=== PATIENT | male | born 1960 | race African-American/Black ===

== ENCOUNTER 2017-08-15 19:46 | Emergency (ER) | payer MEDICARE, OTHER ==
[~2017-08-15] VITALS: Ht 172.7 cm; Wt 79.4 kg
[2017-08-15 19:50] VITALS: BP 118/59
[2017-08-15 21:30] LABS: Albumin 2.9 g/dL (3.4-5.0); Magnesium 2.2 mg/dL (1.6-2.6)
[2017-08-15 21:32] LABS: BUN/Creatinine Ratio 21.9
[2017-08-15 21:34] LABS: Basophils # (auto) 0.1 uL; Basophils % (auto) 0.6 % (0.0-2.0); Eosinophils # (auto) 0.1 uL; Eosinophils % (auto) 0.4 % (0.0-7.0); Hematocrit 41.1 % (41.0-53.0); Hemoglobin 13.6 g/dL (13.5-17.5); Lymphocytes # (auto) 1.3 uL; Lymphocytes % (auto) 9.5 % (10.0-50.0); Mean Corpuscular Hgb Conc. 33.2 g/dL (32.0-36.0); Mean Corpuscular Volume 87.5 fL (80.0-100.0); Monocytes # (auto) 1.3 uL; Monocytes % (auto) 9.7 % (0.0-12.0); Neutrophils # (auto) 10.7 uL; Neutrophils % (auto) 79.8 % (37.0-80.0); Nucleated Red Blood Cells % 0.1 %; Platelet Count (auto) 165 10^3/uL (140-450); Red Cell Distribution Width 14.5 % (11.8-14.3); White Blood Cell 13.4 10^3/uL (4.4-10.8)
[2017-08-15 21:35] LABS: Bilirubin, Total 0.6 mg/dL (0.2-1.0); Total Protein 8.3 g/dL (6.4-8.2)
[2017-08-15 21:39] LABS: Amylase 26 U/L (25-115); Lipase 73 U/L (73-393)
[2017-08-15] MEDS ORDERED: SODIUM CHLORIDE 0.9% 1,000 ML IV ONE (22:15)
[2017-08-15] MEDS ORDERED: IBUPROFEN 600 MG TAB PO ONE (23:15)
[2017-08-16 00:12] LABS: Urine Bacteria NONE SEEN /hpf (None Seen); Urine Blood Negative /uL (Negative); Urine Mucus FEW (None Seen); Urine Specific Gravity 1.035 (1.001-1.035); Urine WBC 2 /hpf (0 - 3)
[2017-08-16] MEDS ORDERED: cefTRIAXone SOD 1,000 MG VL IM ONE (00:45)
[2017-08-16] MEDS ORDERED: cefTRIAXone 1GM/10ml IVPUSH 10 ML IV ONE (01:00)
== END 2017-08-16 01:47 | disposition home or self-care (01) ==
LOC: ER 19:46
DX: J18.9 Pneumonia, unspecified organism (principal)
CPT/HCPCS: 36415; 71010; 80053; 81001; 82150; 83690; 83735; 85025; 87400; 96360; 96361; 96372; 99285; J0696; J7030

== ENCOUNTER 2017-08-18 00:12 | Emergency (ER) | payer MEDICARE, OTHER ==
[~2017-08-18] VITALS: Ht 172.7 cm; Wt 68.0 kg
[2017-08-18 00:32] VITALS: BP 127/74
== END 2017-08-18 02:29 | disposition left against medical advice (07) ==
LOC: ER 00:15
DX: M79.1 Myalgia (principal); Z53.21 Procedure and treatment not carried out due to patient leaving prior to being seen by health care provider
CPT/HCPCS: 71020

== ENCOUNTER 2019-08-03 10:18 | Emergency (ER) | payer MEDICARE, OTHER ==
[~2019-08-03] VITALS: Ht 172.7 cm; Wt 77.1 kg
[2019-08-03 10:48] VITALS: BP 141/83
== END 2019-08-03 11:43 | disposition home or self-care (01) ==
LOC: ER 10:18
DX: G44.209 Tension-type headache, unspecified, not intractable (principal)
CPT/HCPCS: 70450